=== PATIENT | male | born 1940 | race Caucasian/White ===

== ENCOUNTER 2016-10-31 07:53 | Day surgery (SDC) | payer BC, OTHER ==
[~2016-10-31 07:53] MED LIST: Lactated Ringers 1,000 ML IV SCH
[2016-10-31] MEDS ORDERED: fentaNYL 100 MCG/2 ML SDV ONE (10:20)
[2016-10-31] MEDS ORDERED: Propofol 200 MG/20 ML SDV ONE (10:20)
[2016-10-31 11:55] VITALS: BP 121/70
--- NOTE | 2016-10-31 16:08 | OR ---
DATE OF SURGERY: 10/31/2016. REFERRING PROVIDER: DANNA Denney. PRE-OPERATIVE DIAGNOSES: Screening colonoscopy. Last colonoscopy was about 10 years ago per the patient report and was normal. There is no known family history of colon cancer or colon polyps. POST-OPERATIVE DIAGNOSES: Mild diverticulosis. Otherwise normal colon. PROCEDURE: Colonoscopy. SURGEON: Darryl Leon M.D. ANESTHESIA: Monitored anesthesia care. BOWEL PREP: Good. Sorin was brought to the endoscopy suite after discussing risks and benefits of the procedure. Informed consent was obtained for conscious sedation and colonoscopy with or without biopsy and/or polypectomy. We also discussed possibility of missed lesions. Pre-procedure exam was unremarkable. IV, oxygen, and monitors were placed. The patient was placed in the left lateral decubitus position. Sedation was administered and a digital rectal exam was performed which was remarkable for a large prostate, but no palpable nodules noted. Colonoscope was passed into the rectum and slowly advanced all the way to the cecum. Cecum was viewed and photographed. The colonoscope was slowly withdrawn and the mucosa was closed observed in a direct circumferential manner. The ascending colon was unremarkable. The transverse colon was unremarkable. The descending colon was unremarkable. The sigmoid colon was remarkable for some mild diverticulosis. Retroflexion was performed and rectal mucosa was unremarkable. Scope was removed. The patient tolerated the procedure well. The patient was monitored until that baseline status. Discharge instructions were reviewed and the patient was discharged in good condition. COMPLICATIONS: None. TOTAL TIME: 21 minutes. ESTIMATED BLOOD LOSS: None. RECOMMENDATIONS/FOLLOW-UP: Normal colonoscopy. The patient can be done with screening colonoscopies. I would like to kindly thank Chuck Veolz for this referral. DMB: 10/31/2016 10:51:26 MODL: 10/31/2016 15:58:46 /[id number]
== END 2016-10-31 11:45 | disposition home or self-care (01) ==
LOC: VM.SDS 07:53
PROVIDERS: ATTEND Family Medicine
DX: Z12.11 Encounter for screening for malignant neoplasm of colon (principal); K57.30 Diverticulosis of large intestine without perforation or abscess without bleeding; K21.9 Gastro-esophageal reflux disease without esophagitis; K44.9 Diaphragmatic hernia without obstruction or gangrene; J45.909 Unspecified asthma, uncomplicated; Z79.899 Other long term (current) drug therapy; Z98.890 Other specified postprocedural states
CPT/HCPCS: 45378; J2704; J3010; J7120